=== PATIENT | female | born 1995 | race Caucasian/White ===

== ENCOUNTER → 2017-08-23 | Outpatient (CLI) | payer OTHER ==
--- NOTE | 2017-08-23 20:39 | DIAGNOSTIC IMAGING REPORT ---
L WRIST MIN 3 VIEWS ROUTINE HISTORY: 22 years-old Female LEFT WRIST PAIN acute left-sided wrist pain status post injury COMPARISON: None available TECHNIQUE: 4 views of the left wrist FINDINGS: There is mild soft tissue swelling of the distal forearm and wrist, greatest medially. Minimal cortical lucency of the dorsal radius seen on the oblique lateral view suggests physeal scar. There is no acute fracture, dislocation or significant degenerative changes. No opaque foreign body. IMPRESSION: Mild soft tissue swelling without acute bony abnormality. The above report was generated using voice recognition software. It may contain grammatical, syntax or spelling errors. Electronically signed by: Kaveh Pineda M.D. 08/23/2017 8:38 PM Dictated Date/Time: 08/23/2017 8:35 PM
== END | disposition home or self-care (01) ==
LOC: C.RAD 20:08
PROVIDERS: ATTEND Family Medicine
DX: M25.532 Pain in left wrist (principal)